=== PATIENT | female | born 1955 | race Caucasian/White ===

== ENCOUNTER 2017-10-18 20:07 | Observation (INO) | payer BC ==
[2017-10-18] MEDS ORDERED: Fentanyl 100 MCG/2 ML VIAL ONE (20:24)
[2017-10-18] MEDS ORDERED: Ondansetron ODT 4 MG TAB ONE ×2 (20:26→22:15)
--- NOTE | 2017-10-18 21:14 | CT ---
NONCONTRAST CT HEAD: 10/18/17 HISTORY: Patient was standing on counter in bathroom hanging a mirror when fell onto floor and hit head on wal l. Injury after fall. COMPARISON: 03/15/14. FINDINGS: There is no evidence of a hemorrhage, acute infarction, mass effect or midline shift. Ventricular sys tem is normal in size, shape and position. Scalp soft tissue swelling is seen in the posterior pariet al region near the vertex. There is no depressed calvarial fracture seen. Mucosal thickening is seen in the bilateral ethmoidal air cells and right sphenoid sinus. No other interval change. IMPRESSION: 1. No acute intracranial abnormalities demonstrated. 2. Posterior parietal scalp hematoma without evidence of an underlying calvarial fracture. 3. Sinus disease. POS: ADITI
--- NOTE | 2017-10-18 21:27 | RAD ---
THREE VIEWS SACRUM AND COCCYX 10/18/17 HISTORY: Pain to tailbone area after falling. FINDINGS: The lateral view is rotated which obscures the majority of the sacrum due to overlying osseous struct ures. A subtle fracture is difficult to entirely exclude. There is questionable irregularity of the mid sacrum on the lateral view. Sacroiliac joints are symmetric in appearance bilaterally. Degenerati ve changes are seen in the lower lumbar spine and involving the pubic symphysis. Phleboliths overlie the pelvis. IMPRESSION: Limited evaluation of the sacrum and coccyx on the lateral projection related to prominent patient ro tation. A subtle fracture would be difficult to entirely exclude. However, there is questionable irre gularity of the mid sacrum on the lateral view. In addition, the coccyx is also not well seen. CT sca n may be beneficial for further evaluation. POS: ADITI
--- NOTE | 2017-10-18 23:05 | CT ---
NONCONTRAST CT PELVIS 10/18/17 HISTORY: Patient fell from counter in bathroom and now has tailbone pain. There is a fracture involving the mid portion of the sacrum which involves the S2 and S3 vertebral carmelo dies. There is only slight displacement of fracture fragments. No additional fracture is seen involvi ng the sacrum or coccyx. There is mild bilateral hip osteoarthritis. Degenerative changes are seen at the pubic symphysis. There is evidence of hysterectomy. Phleboliths are seen in the pelvis. The appendix is visualized and normal in caliber. There is a moderate amount of retained fecal material in the visualized colon sug gesting constipation. IMPRESSION: 1. Fracture mid portion of the sacrum at the L2-3 level without significant displacement of frac ture fragments. 2. Above findings discussed with Oksana Patel in the Emergency Department on 10/18/17 at 2226 hours. POS: ADITI
[2017-10-18] MEDS ORDERED: Ondansetron ODT 8 MG TAB ONE (23:11)
[2017-10-19] MEDS ORDERED: Dextrose 5% in Water 1,000 ML IV PRN (01:02)
[2017-10-19] MEDS ORDERED: Insulin Regular 300 UNITS/3 ML VIAL SC PRN (01:02)
[2017-10-19] MEDS ORDERED: Dextrose 50% Abboject 50 ML SYRINGE SLOW IVP PRN (01:02)
[2017-10-19] MEDS ORDERED: Ondansetron HCl/PF 4 MG/2 ML Vial IVP PRN (01:02)
[2017-10-19] MEDS ORDERED: traMADol HCl 50 MG TAB PO PRN (01:02)
[2017-10-19] MEDS ORDERED: Sodium Chloride 0.9% 1,000 ML IV SCH (01:02)
[2017-10-19 01:26] VITALS: BMI 29.2
[2017-10-19] MEDS: Acetaminophen 500 MG TAB PO SCH ×4 (01:32→19:11)
--- NOTE | 2017-10-19 02:03 | HP ---
DATE OF ADMISSION: 10/18/2017 ADMITTING PHYSICIAN: Dr. Samy Gill. REQUESTING PHYSICIAN: Dr. Hernandez, Emergency Department. HISTORY OF PRESENT ILLNESS: Ms. Miranda is a 61-year-old female who was standing up on a counter in her bathroom repairing a mirror when she fell backwards, landing on the floor, initially landing on her bottom and then striking her head on the floor as well. She denies any LOC. She had immediate pain in her coccyx area. She was transported to the emergency department by EMS. Workup identified fract ure of the mid portion of the sacrum at the L2-L3 level. There were no intracranial abnormalities id entified on CT scan; however, the patient continued to exhibit postconcussive symptoms in the emergen cy department. She was evaluated by the ER physicians and attempted to ambulate around the ER at [facility] time, she became extremely nauseated and had multiple episodes of vomiting with significant pain w hile she was trying to ambulate, making it difficult for her to ambulate any distance at all. Trauma Services was consulted for admission and management. PAST MEDICAL HISTORY: 1. Diabetes. 2. Hypertension. PAST SURGICAL HISTORY: 1. . 2. Hysterectomy. 3. Knee surgery. SOCIAL HISTORY: Patient lives at home with adult children. Patient denies alcohol, drug, or tobacco use. ALLERGIES: 1. INVOKANA. 2. WELLBUTRIN. CURRENT MEDICATIONS: 1. Lisinopril 20 mg once daily. 2. Metformin 500 mg twice daily. 3. Tradjenta 5 mg once daily. 4. Citalopram 20 mg once daily. 5. Tramadol 50 mg every 6 hours as needed. REVIEW OF SYSTEMS: Constitutional: The patient denies recent weight loss, fever, chills, general ma laise. HEENT: The patient complains of headache, no blurred vision, no rhinorrhea or otorrhea. No posterior neck pain. Pulmonary: The patient denies shortness of breath, wheezing, or cough. Denies chest tenderness. Cardiovascular: Denies chest pain, palpitations, or syncope. Gastrointestinal: Denies abdominal pain, nausea, vomiting, diarrhea, or constipation. Extremities: Denies numbness o r tingling. Back: Complains of low back and tailbone pain. Skin: Denies rashes or skin changes. PHYSICAL EXAMINATION: VITAL SIGNS: Blood pressure 168/94, pulse 65, respirations 18, O2 saturation 98% on room air. GENERAL: A well-developed, well-nourished female, in no acute distress. HEENT: Atraumatic, normocephalic. Pupils equal. NECK: Trachea midline. No posterior neck tenderness. PULMONARY: Bilateral breath sounds. Clear to auscultation. No wheezing. Chest movement symmetrica l. No crepitus. CARDIOVASCULAR: Regular rate and rhythm. Heart sounds normal. ABDOMEN: Soft, nontender, nondistended. Pelvis stable. EXTREMITIES: Moves all extremities. Cap refill brisk. 2+ pulses. NEUROLOGIC: GCS is 15. Awake, alert, oriented x3. No focal deficits. BACK: Tenderness to lower back. SKIN: Color within normal limits. Warm and dry. PSYCHIATRIC: Normal mood and affect. DIAGNOSTIC IMAGING: As stated in the HPI. ASSESSMENT: 1. Fall from height approximately 3-4 feet. 2. Sacral fracture at the L2-L3 level. 3. Postconcussive symptoms. 4. Acute traumatic pain. 5. History of diabetes, present on admission. 6. History of hypertension, present on admission. PLAN: 1. Admit for observation and pain control. 2. Physical therapy, walking and ambulatory evaluation. 3. Zofran for postconcussive nausea. 4. Patient may have clear liquid diet. We will continue on IV maintenance fluids. If patient gianluca ates clear liquid diet, may decrease IV fluids and advance diet as tolerated. 5. Scheduled Tylenol and p.r.n. tramadol for analgesia. 6. Neuro checks q.4 hours. 7. Pepcid for PUD prophylaxis. 8. Ambulate with assistance, place SCDs for DVT prophylaxis. 9. Anticipate patient will discharge in a.m. We will probably need referral to concussion clinic. This patient will be discussed with Dr. Gill, attending surgeon at the conclusion of this dictation .
[2017-10-19] MEDS ORDERED: Famotidine 20 MG TAB PO SCH (09:00)
--- NOTE | 2017-10-19 13:33 | ULT ---
CAROTID DOPPLER ULTRASOUND: Date: 10/19/17 HISTORY: Presyncope. COMPARISON: None. TECHNIQUE: Real-time Roberson scale, color Doppler, and spectral analysis of the extracranial carotid and vertebral arteries was performed with a linear transducer. FINDINGS: There are no elevated peak systolic velocities within the internal carotid arteries. Antegrade flow b oth vertebral arteries. Right ICA/CCA ratio is 1.04. Left ICA/CCA ratio is 1.07. IMPRESSION: No hemodynamically significant stenosis. POS: HOWIE
[2017-10-19 20:22] VITALS: BP 149/86; TEMP 98.2
--- NOTE | 2017-10-19 21:29 | DIS ---
DATE OF ADMISSION: 10/19/2017 DATE OF DISCHARGE: 10/19/2017 ADMITTING PHYSICIAN: Dr. Samy Gill. DISCHARGING PHYSICIAN: Dr. Saurav Chavez. REASON FOR HOSPITALIZATION: Fall from height. HOSPITAL DIAGNOSES: 1. Fall from height approximately 3 to 4 feet. 2. Sacral fracture at L2-L3 level. 3. Postconcussive syndrome. DISCHARGE CONDITION: Good. DISPOSITION: Home with family. MEDICATIONS: The patient may resume home medications. FOLLOWUP: The patient may follow up with concussion clinic Dr. Chavez and Dr. Ma as needed. BRIEF HISTORY OF HOSPITALIZATION: Ms. Miranda is a 61-year-old female who was up on her countertop, azalia wick up, trying to hang a mirror. She subsequently fell backwards, landing on her bottom, and then s triking her head on the floor. She did not have LOC. She was transported to [facility] where a sacral fracture was identified. When she got up to try to ambulate in the emergency department, she immediately had nausea, vomiting, dizziness as well as headache. She was admitted b y Trauma Services to the floor for observation and pain management. She also underwent a carotid Dop pler study to evaluate for carotid stenosis in the event that this caused her to fall as she was hang ing her mirror. Carotid Doppler study was negative for significant stenosis. On hospital day #1, christiane domínguez was able to ambulate with minimal assistance. Pain was well controlled with only Tylenol. She wis hed to go home. She was discharged home with family. She may follow up as above. The patient was seen and examined with Dr. Chavez who agrees with plan.
== END 2017-10-19 20:20 | disposition home or self-care (01) ==
LOC: ERS 20:07 → SURG B 10-19 01:02
PROVIDERS: ADMIT Specialist; ATTEND Specialist
DX: S32.10XA Unspecified fracture of sacrum, initial encounter for closed fracture (principal); G89.11 Acute pain due to trauma; F07.81 Postconcussional syndrome; E11.9 Type 2 diabetes mellitus without complications; I10 Essential (primary) hypertension; W22.8XXA Striking against or struck by other objects, initial encounter; W08.XXXA Fall from other furniture, initial encounter; Y93.89 Activity, other specified; Y92.012 Bathroom of single-family (private) house as the place of occurrence of the external cause; Z79.84 Long term (current) use of oral hypoglycemic drugs; Z79.891 Long term (current) use of opiate analgesic; Z79.899 Other long term (current) drug therapy; Z88.8 Allergy status to other drugs, medicaments and biological substances; Z90.710 Acquired absence of both cervix and uterus; Z98.891 History of uterine scar from previous surgery; Z98.890 Other specified postprocedural states
CPT/HCPCS: 36416; 70450; 72192; 72220; 93880; 96361; 96374; G0378; J1815; J3010; Q0162